=== PATIENT | female | born 1950 | race Caucasian/White ===

== ENCOUNTER 2022-08-03 10:02 | Day surgery (SDC) | payer MEDICARE, OTHER, SELFPAY ==
[2022-08-03] VITALS (9 sets, daily range): BP systolic 93–140; BP diastolic 53–86; PULSE 70–80; RESP 12–17; TEMP 35.9–36.6; O2SAT 92–99; BMI 37.0
--- NOTE | 2022-08-03 | LIP_PTH ---
PATIENT: BRAXTON RIBEIRO LOC: [facility] [place] U#:[id number] AGE/SX: 72/F ROOM: RE08/03/[address]: Dr. Annette Hinojosa MD : 1950 BED: DIS: 08/03/2022 SPEC #: [id number] RECD: 08/03/22 14:05 STATUS: SPIKE RECarito #: [id number] JHON: 08/03/22 00:[address]: Annette Hinojosa DEPT: SURGICAL PATHOLOGY RECD BY: Oscar Mcfarlane ENTERED: 08/06/22 11:28 SP TYPE: LIPOMA OTHR DR: Dr. Pat Dockery, DO Tissues: Soft tissues, NOS Procedures: Surgery Specimen Level III HEADER OPERATION: Excision left axillary lipoma PRE-OP DIAGNOSIS: Left axillary lipoma TISSUE SUBMITTED: Left axillary lipoma MICROSCOPIC DIAGNOSIS Left axillary lipoma, excision: Mature adipose tissue consistent with lipoma. AM:gracy 08/07/2022 MICROSCOPIC DESCRIPTION Slides are reviewed. GROSS DESCRIPTION Received in fixative is one container labeled with the patient's name and designated left axillary lipoma. The specimen consists of multiple irregular fragments of edmonds-yellow fatty tissue that in aggregate measure 9.0 x 7.0 x 2.0 cm. Serial sections reveal homogenous yellow cut surfaces. [employer] sections are submitted in two cassettes. / AM:gracy 08/06/2022 TC:1 CPT: 15080
--- NOTE | 2022-08-03 11:16 | PCM.HP.BLA ---
History and Physical Date of Admission: 08/03/22 Date of Service:? 07/31/22 MR#: [id number] Acct: [id number] Name:BRAXTON MARISCAL Rep #: [id number] : 1950 ? ? Provider: Dr. Annette Hinojosa MD Age/Sex:? 72/F ? ? Location: [facility] Status: Signed Intake Vital Signs ? 07/31/2313:24 Weight: 198 lb 2 oz BP 105/71 Blood Pressure Location Rt brachial Position Sitting Respiration 17 Pulse 75 Pulse Source Monitor Pulse Oximetry (%) 95 Oxygen Delivery Method room air Intake Visit Reasons:?L ARM PIT LIPOMA Chief Complaint: left arm pit lipoma Is patient in pain?: No Allergies metronidazole [From Flagyl] Allergy (Mild, Verified 08/02/22 10:21) PT UNSURE OF REACTION Medications atorvastatin 10 mg tablet 10 mg PO DAILY 07/31/22 [History Confirmed 08/02/22] calcium phosphate 250 mg-vitamin D3 2.5 mcg (100 unit) chewable tablet (Yogurt Plus Calcium Gummies) 1 tab PO DAILY 07/31/22 [History Confirmed 08/02/22] cholecalciferol (vitamin D3) 25 mcg (1,000 unit) capsule 25 mcg PO DAILY 07/31/22 [History Confirmed 08/02/22] levothyroxine 112 mcg capsule 112 mcg PO DAILY 07/31/22 [History Confirmed 08/02/22] meloxicam 15 mg tablet 15 mg PO DAILY PRN Pain 07/31/22 [History Confirmed 08/02/22] pantoprazole 40 mg tablet,delayed release 40 mg PO DAILY 07/31/22 [History Confirmed 08/02/22] trazodone 50 mg tablet 50 mg PO QHS 07/31/22 [History Confirmed 08/02/22] PFSH Medical History?(Updated 08/02/22 @ 10:34 by Ingrid Kamara) Alcohol use Arthritis Back pain Cancer Depression Difficulty swallowing Gastric reflux History of stress test Leg cramps Migraine headache Non-smoker Psoriasis Shortness of breath on exertion Thyroid disease Wears glasses Surgical History?(Updated 08/02/22 @ 10:34 by Ingrid Kamara) History of facelift History of lumpectomy of right breast History of radical neck dissection History of surgery on arm Hx of bladder repair surgery Hx of hemorrhoidectomy Hx of hysterectomy Hx of left cataract extraction Hx of right cataract extraction Social History?(Updated 07/31/22 @ 14:24 by Maegan Pablo) Smoking Status:? Never smoker alcohol intake:? current alcohol intake frequency: holidays/special occasions only substance use type:? does not use HPI HPI HPI: 72-year-old female presents to office due to left axillary lipoma.? Patient states she had this for about 4 years has increased in size was initially about quarter size now is about a golf ball size.? Patient did state that she has some pimples on the area occasionally and states that can be a little tender with palpation.? Patient ultrasound which per the report says no mass was seen?negative.? Patient states she has had other lipomas removed in the past. ROS General General: Yes fatigue; No weight change, appetite, colon cancer, breast cancer or weakness HEENT HEENT: No difficulty swallowing, eye injury, eye surgery, swollen glands or hoarseness Endo Endocrine: Yes thyroid disease; No diabetes mellitus, thyroid cancer, Hair loss, heat intolerance or cold intolerance Skin Skin: Yes rash; No changing moles Musc Musculoskeletal: Yes back problems and arthritis; No rheumatoid arthritis, gout or joint pain Cardio Cardiovascular: No murmur, pacemaker, heart disease, atrial fibrillation, high blood pressure, heart attack, heart stent, palpitations, shortness of breat with exertion or chest pain Psych Psychiatric: Yes depression; No anxiety or hearing voices Resp Respiratory: Yes shortness of breath, Yes sleep apnea, No cough, No COPD, No asthma, No emphysema and No wheezing Gastro Gastrointestinal: No abdominal pain, No nausea or vomiting, No diarrhea, No constipation, No blood in stool, Yes acid reflux, Yes hemorrhoids, No ulcers, No gallbladder problem and No black,tarry stools Carmelo Hematologic: No blood thinners, No blood disorders, No bleeding, No anemia and No blood clots Neuro Neurologic: No system reviewed and no additional complaints, except as documented, No as per HPI, No abnormal gait, No abnormal hearing, No abnormal movements, No abnormal speech, No behavioral changes, No burning sensations, No confusion, No convulsions, No disequilibrium, No dizziness, No localized weakness, No frequent falls, No headache(s), No lack of coordination, No loss of vision, No memory loss, No numbness, No other visual disturbances, No radicular pain, No restless legs, No sensory deficit, No syncope, No tingling, No tremor(s), No weakness and No other Exam Const General: cooperative, healthy appearing and no acute distress [facility] Head: normal to inspection Resp Effort & Inspection: normal respiratory effort Cardio Rate: regular rate GI Inspection: non-distended Palpation: soft Skin General: no rashes or lesions noted Other: Left axilla: Protrusion soft, somewhat mobile about 3 x 3 cm, bedside ultrasound looks consistent with other axillary tissue that is likely lipoma. Neuro General: patient oriented x3 Extrem General: no clubbing, cyanosis or edema Psych Affect: normal affect Assessment and Plan Assessment and Plan (1) Lipoma of left axilla: ?Status:?Acute Plan Discussed with patient plan to excise the left axillary lipoma in the OR.? Discussed risk including but not limited to bleeding, infection, recurrence and anesthesia.? Patient no further question this time. Annette Hinojosa M.D. Pager: [phone] [facility] [address] [place] [address], [address] [place] [address] Office: [phone] Coding Level of Care Code Off vis,new,level 3 Diagnoses Lipoma of left axilla? D17.22 08/02/22 1420 <Electronically signed by Annette Hinojosa MD> Date Annette Hinojosa MD
[2022-08-03] MEDS: Lactated Ringers 1,000 ML 15 ML IV ×2 (11:57→14:58)
[2022-08-03] MEDS: Cefazolin 2 GM in 0.9% Normal Saline 100 ML IV (12:52)
--- NOTE | 2022-08-03 13:21 | OP.PCM_ITS ---
Report of Operation Date of Procedure: 08/03/22 Pre-Operative Diagnosis: Left axillary lipoma Post-Operative Diagnosis: Same Surgery/Procedure Performed:: Excision of left axillary lipoma Surgeon: Annette Hinojosa real estate sales associate: Dawn Mariscal Type of Anesthesia: General/Supplemental Anesthesiologist: Viktor Yoo Special Medications: Ancef 2 g IV x1 Specimen's removed: Left axillary lipoma Estimated Blood Loss (mL): < 10 cc Description of Procedure: Patient was brought to the operating room placed upon operating table. A timeout was completed verifying correct patient, procedure, site, positioning, special, appropriate procedure. General anesthesia was induced. Patient's left axilla was prepped draped in sterile fashion with chlorhexidine. Incision was planned overlying the axillary lipoma. Incision was made with a 15 blade scalpel this was deepened with electrocautery. The lipoma was excised with electrocautery. Lipoma was sent to pathology?it measured 5 cm x 6 cm x 4 cm in accumulative tissue. The cavity was checked hemostasis was achieved with elect rocautery. Incision was closed with subdermal sutures of 3-0 Vicryl and skin was closed with 4-0 Monocryl and Dermabond. Pressure dressing was also placed. Patient tolerated procedure well was taken to the postanesthesia care unit in stable condition. Complications none
--- NOTE | 2022-08-03 13:24 | DCINST_ITS ---
Discharge Instructions Diet Discharge Diet: No restrictions Activity Discharge Activity: May Not Drive (for 2-3 days or while taking narcotic pain meds.) May shower in (days): 1 Lifting Restrictions: 10 pounds for 1 week. Dressing / Incision Call your doctor if your incision/area has: Continuous Slow Oozing, Sudden Increased Bleeding, Increased Pain/ Swelling and Increased Redness Call your doctor if you observe: Fever of 101 or Higher Suture Line Care: Avoid Pulling/Pushing and Avoid Pinching/Bending Additional Dressing/Incision Instructions:: Keep pressure dressing on for couple days and then try to redress with a pressure dressing to prevent seroma. May leave any op-site dressing for 3-4 days. Dermabond (glue) was used at the axillary incision this may start to peel off in about 5 days. Follow Up Care Please Follow Up With: Annette Hinojosa MD When: Please call [phone] for an appointment to be seen in 2 week. Test Results: Test results from this visit will be discussed in further detail at your follow- up appointment, if applicable. Discharge Plan Admission Attending Provider: Annette Hinojosa Primary Care Provider: Pat Dockery Discharge Orders/Prescriptions Prescriptions: Continued meloxicam 15 mg tablet 15 mg PO DAILY PRN (Reason: Pain) levothyroxine 112 mcg capsule 112 mcg PO DAILY pantoprazole 40 mg tablet,delayed release (DR/EC) 40 mg PO DAILY atorvastatin 10 mg tablet 10 mg PO DAILY trazodone 50 mg tablet 50 mg PO QHS cholecalciferol (vitamin D3) 25 mcg (1,000 unit) capsule 25 mcg PO DAILY Yogurt Plus Calcium Gummies 250 mg-2.5 mcg (100 unit) tablet,chewable 1 tab PO DAILY Referrals / Follow Up: Pat Dockery DO [Primary Care Provider] - Disposition Disposition (needs filled in before D/C Order can be placed): Home, Self Care
[2022-08-03] MEDS: Bupivacaine 0.25% 30 ML Vial (13:25)
== END 2022-08-03 15:48 | disposition home or self-care (01) ==
LOC: SDC 10:03 → AC 10:04
PROVIDERS: PCP Family Medicine; Referring Provider Surgery; Visit Provider Surgery
PROC: (CPT 38500; principal; 2022-08-03 13:00)
DX: D17.22 Benign lipomatous neoplasm of skin and subcutaneous tissue of left arm (principal); E07.9 Disorder of thyroid, unspecified; K21.9 Gastro-esophageal reflux disease without esophagitis; Z79.899 Other long term (current) drug therapy
CPT/HCPCS: 24071; 00400; 88304; J7120; J2405